=== PATIENT | male | born 1965 | race Caucasian/White ===

== ENCOUNTER → 2017-08-23 | Outpatient (CLI) | payer BC ==
[~2017-08-23] MED LIST: ALBU18HF INH; CETI10CA PO; ESOM40CA PO; MONT10TA6 PO; ZOLP-413 PO
== END | disposition home or self-care (01) ==
LOC: CFH 06:40
PROVIDERS: ATTEND Internal Medicine Geriatric Medicine
DX: K76.89 Other specified diseases of liver (principal); R16.1 Splenomegaly, not elsewhere classified; K50.90 Crohn's disease, unspecified, without complications
CPT/HCPCS: 74181

== ENCOUNTER → 2017-08-29 | Outpatient (CLI) | payer BC ==
[~2017-08-29] MED LIST changes: +GADOBUTROL 10 MMOL/10 ML VIAL ONE; +GLUCAGON 1 MG ONE; +WATER-INJECTION,STERILE 10 ML IV ONE
== END | disposition home or self-care (01) ==
LOC: CFH 06:37
PROVIDERS: ATTEND Internal Medicine Geriatric Medicine
DX: K50.90 Crohn's disease, unspecified, without complications (principal)
CPT/HCPCS: 72197; 74183; A9585; J1610